=== PATIENT | female | born 1985 | race Caucasian/White ===

== ENCOUNTER 2024-02-18 10:28 | Outpatient (AMB) | payer OTHER, SELFPAY ==
--- NOTE | 2024-02-18 11:11 | MHC.PC.OV ---
Intake Visit Reasons: NPV Allergies No Known Allergies Allergy (Verified 02/18/24 10:11) Tobacco use date assessed: 02/18/24 Dental Screening Dental Screen Date: 02/18/24 HPI NPV HPI Details Pt is a 38 y/o female who presents to follow up/[facility] [place] [facility] Psych: She is on sertraline 50 mg. She saw her psychiatrist 02/08 and states she is starting to feel a lot better. She is feeling more motivated. Her OCD thoughts are under better control. She is on lorazepam prn. Neuro: She is on topamax 50 mg at bedtime which has helped prevent migraines. She has not had a horrible one since September. She is following with [facility] and has follow up at the end of February. Breast: Denies any masses. States that for the past year she has had intermittent nipple drainage and a let down feeling in both of her breasts, right worse than left. She is on the progesterone only pill and states that her OBGYN told her that it was likely not related. No family history of breast cancer. She has not breastfed in 3 years. 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 1. Little interest or pleasure in doing things: not at all 2. Feeling down, depressed, or hopeless: several days 3. Trouble falling or staying asleep, or sleeping too much: not at all 4. Feeling tired or having little energy: several days 5. Poor appetite or overeating: not at all 6. Feeling bad about yourself - or that you are a failure or have let yourself or your family down: not at all 7. Trouble concentrating on things, such as reading the newspaper or watching television: not at all 8. Moving or speaking so slowly that other people could have noticed. Or the opposite - being so fidgety or restless that you have been moving around a lot more than usual: not at all 9. Thoughts that you would be better off or of hurting yourself in some way: not at all Total score: 2 Depression Screening Interpretation: Negative Depression Screening Done: Yes [id number] - PHQ-9 Billing: Yes Source: Developed by Drs. Dc Flood, Lori Mendez, Atilio Fabian and colleagues, with an educational michelle from [employer]. Thrive Questionnaire Date Thrive assessed: 02/18/24 AUDIT C Alcohol Use Questionnaire (AUDIT-C) 1. How often do you have a drink containing alcohol?: 2-4 times a month 2. How many drinks containing alcohol do you have on a typical day when you are drinking?: 1 or 2 3. How often do you have six or more drinks on one occasion?: Never Total Score: 2 Score Reviewed/Action Taken: Yes KEARA-7 AMB Questionnaire KEARA-7 Date KEARA - 7 assessed: 02/18/24 Feeling nervous, anxious, or on edge: 3 = Nearly every day Not being able to stop or control worryin = More than half the days Worrying too much about different things: 2 = More than half the days Trouble relaxin = Nearly every day Being so restless that it is hard to sit still: 1 = Several days Becoming easily annoyed or irritable: 1 = Several days Feeling afraid as if something awful might happen: 1 = Several days Total KEARA-7 score (0-4 normal; 5-9 mild; 10-14 moderate; 15-21 severe): 13 Source: Developed by Drs. Dc Flood, Lori Mendez, Atilio Fabian and colleagues, with an educational michelle from [employer]. KEARA-7 Assessment Billing KEARA-7 Assessment Tool: KEARA-7 Assessment 88377 Physical exam (Primary Care) Tobacco/Smoking Status: Tobacco use Status Tobacco use date assessed 02/18/24 02/18/24 11:20 Patient Tobacco Use Status Former Tobacco user 02/18/24 11:20 e-Cigarette/Vaping Use Never Used 02/18/24 11:20 PHQ-9: PHQ-9 Score PHQ-9: Total score 2 02/18/24 11:20 Depression Screening Interpretation: Negative Thrive Assessment: Date of Thrive Assessment Date Thrive assessed 02/18/24 02/18/24 11:20 Telehealth Telehealth Telehealth Platform: Telephone Location of provider rendering services: practice address Location of patient: address on file Patient Identification confirmed using: Name, : Yes Telehealth method: voice only Patient verbally consented to treatment: Yes Patient verbally consented to billing insurance company: Yes Patient informed of any privacy concerns related to visit: Yes Minutes spent on Phone/Video with Pt.: 19 Assessment and Plan Assessment & Plan (1) Migraine: Code(s): G43.909 - Migraine, unspecified, not intractable, without status migrainosus Qualifiers: Intractability: not intractable Migraine type: chronic migraine (15 or more days per month) with aura Status migrainosus presence: without status migrainosus Qualified Code(s): G43.E09 - Chronic migraine with aura, not intractable, without status migrainosus Plan: currently doing better with her current treatment plan from [facility] neuro. (2) Generalized anxiety disorder with panic attacks: Code(s): F41.1 - Generalized anxiety disorder; F41.0 - Panic disorder [episodic paroxysmal anxiety] Plan: feeling a lot better with her anxiety. No SI/HI. (3) Nipple discharge: Code(s): N64.52 - Nipple discharge Plan: Mammogram ordered. Labs ordered. Orders: Orders Prolactin Today N64.52 - Nipple discharge Comprehensive Met. Panel Today F41.0 - Panic disorder [episodic paroxysmal anxiety], F41.1 - Generalized anxiety disorder, G43.E09 - Chronic migraine with aura, not intractable, without status migrainosus, N64.52 - Nipple discharge TSH reflex Free T4 Today F41.0 - Panic disorder [episodic paroxysmal anxiety], F41.1 - Generalized anxiety disorder, G43.E09 - Chronic migraine with aura, not intractable, without status migrainosus, N64.52 - Nipple discharge MM diagnostic mammo BI Today N64.52 - Nipple discharge Coding Level of Care Code Tele Est Pt Level 3 (89039) Diagnoses Chronic migraine with aura without status migrainosus, not intractable G43.E09 Intractability: not intractable Migraine type: chronic migraine (15 or more days per month) with aura Status migrainosus presence: without status migrainosus Generalized anxiety disorder with panic attacks F41.1; F41.0 Nipple discharge N64.52 Additional Codes KEARA-7 Assessment Billing - KEARA-7 Assessment Tool: KEARA-7 Assessment 63184 ([id number])
== END 2024-02-18 11:28 | disposition home or self-care (01) ==
LOC: HO.HMGFM 10:28
PROVIDERS: PCP Physician Assistant; Visit Provider Physician Assistant
DX: G43.E09 Chronic migraine with aura, not intractable, without status migrainosus (principal); F41.1 Generalized anxiety disorder; F41.0 Panic disorder [episodic paroxysmal anxiety]; N64.52 Nipple discharge
CPT/HCPCS: 99213

== ENCOUNTER 2024-04-20 14:28 | Outpatient (REF) | payer OTHER, SELFPAY ==
--- NOTE | ~2024-04-20 | MM_ITS ---
EXAMINATION: MM DIAGNOSTIC DIGITAL BREAST TOMOSYNTHESIS, BILATERAL US BREAST LIMITED, BILATERAL MAMMOGRAPHY: CLINICAL INFORMATION: 38-year-old female, baseline exam, no family history of breast CA, complaining of fullness bilateral breasts 10:00 to approximately 2:00, at the end of her cycle, and milky bilateral nipple discharge (which could not be elicited on today's exam, and the patient says has not occurred for 3 months). COMPARISON: Mammography: None. Baseline exam. TECHNIQUE: Digital breast tomosynthesis is performed in both the craniocaudal and mediolateral oblique views along with computer-aided detection (CAD). Synthesized 2D images are generated from the tomosynthesis. In addition to standard views, full-field right and left 3-D ML views were obtained, as well as 3-D spot compression right CC and MLO views. This was followed by targeted bilateral breast ultrasound. FINDINGS: The breasts are heterogeneously dense, which may obscure small masses (ACR BI-RADS breast composition Category c). -In the RIGHT breast upper outer quadrant, focal asymmetries did not persist on spot compression views and are consistent with normal overlapping fibroglandular tissues. -In the approximate 3:00 axis, middle one third, there is a 7 mm oval mass minimally lobulated margins, for which targeted right ultrasound is recommended. -Otherwise, there is no suspicious mass, no suspicious grouped calcifications, or area of architectural distortion present. There is no skin or axillary abnormality. -No right mammographic abnormality in the 10:00 to 2:00 axis to explain breast fullness. -In the LEFT breast, there is a dermal-based small circumscribed mass measuring 6 mm in diameter at the 2:00 axis, approximately 5 cm from the nipple. This has characteristics suggestive of a sebaceous cyst. We will evaluate this with ultrasound. -Otherwise, there is no suspicious mass, no suspicious grouped calcifications, or area of architectural distortion present. There is no skin or axillary abnormality. -No left mammographic abnormality in the 10:00 to 2:00 axis to explain breast fullness. ULTRASOUND: CLINICAL INFORMATION: -Bilateral breast fullness spanning 10-2 o'clock axes both breasts. -Left breast 6 mm circumscribed dermal mass 2:00 axis, 5 cm from the nipple, suggestive of sebaceous cyst. -Right breast 7 mm minimally lobular oval mass 3:00 axis, middle one third. COMPARISON: None. Baseline study. TECHNIQUE: Targeted sonographic evaluation bilateral breasts was performed using a high frequency linear transducer. Both breasts were evaluated from the 10:00 to 2:00 axes, and the regions of breast fullness. Right breast was also evaluated 3:00 axis in the region of the oval lobular 7 mm mass. Left breast was also evaluated in the 2:00 axis in the region of dermal-based 6 mm mass Selected archived documentation. FINDINGS: RIGHT BREAST: There is heterogeneously dense fibroglandular tissue present in the 10:00 to the 2:00 axis. No sonographic abnormality is present in this region to explain breast fullness. -No suspicious mass is seen. There is no pathologic acoustic shadowing. -There is a complicated cyst in the right breast 3:00 axis, 4 cm from the nipple, measuring 6 x 6 x 7 mm, with low-level internal echoes, no internal color Doppler flow, and mildly lobular margins. There is minimal through transmission present. No surrounding parenchymal changes or distortion. This finding is probably benign and six-month interval follow-up targeted right breast ultrasound recommended to ensure stability. LEFT BREAST: There is heterogeneously dense fibroglandular tissue present in the 10:00 to the 2:00 axis. No sonographic abnormality is present in this region to explain breast fullness. -No suspicious mass is seen. There is no pathologic acoustic shadowing. -There is a 6 mm dermal-based cysts in the 2:00 axis, 5 cm from the nipple, consistent with a noncomplicated sebaceous cyst. This is benign. MM/MM tomosynthesis diagnostic BI IMPRESSION: 1. There are no findings in either breast suspicious for malignancy. 2. There are no findings in either breast spanning the 10:00 to 2:00 axes to explain breast fullness. Only heterogeneously dense fibroglandular tissue is noted. Recommend clinical management for these symptoms. Otherwise, routine to routine screening is recommended. 3. There is a benign sebaceous cyst measuring 6 mm in the 2:00 axis of the LEFT breast, 5 cm from the nipple, abutting the skin, benign. Clinical management recommended. Otherwise, return to routine screening recommended. 4. There is a complicated cyst in the RIGHT breast at the 3:00 axis, 4 cm from the nipple, which is probably benign, and 6 month follow-up targeted right breast ultrasound recommended to ensure stability. OVERALL ASSESSMENT: Mammography: BI-RADS 3 - Probably benign finding(s) - 6 month follow-up suggested Ultrasound: BI-RADS 3 - Probably benign finding(s) - 6 month follow-up suggested RECOMMENDATION: 6 Month F/U
== END 2024-04-20 14:29 | disposition home or self-care (01) ==
LOC: HO.MAMMO 14:28
PROVIDERS: PCP Physician Assistant; Visit Provider Physician Assistant
DX: N64.52 Nipple discharge (principal)
CPT/HCPCS: 76642; 77062; 77066

== ENCOUNTER → 2024-04-20 15:00 | Outpatient (BNV) | payer OTHER, SELFPAY | PROVIDERS: PCP Physician Assistant; Visit Provider Radiology Diagnostic Radiology | DX: N64.52 Nipple discharge (principal) | CPT/HCPCS: 76642; 77062; 77066 ==

== ENCOUNTER 2024-05-18 09:18 | Outpatient (AMB) | payer OTHER, SELFPAY ==
--- NOTE | 2024-05-18 09:21 | A.OFFPC_ITS ---
Vital Signs 05/18/24 09:24 Height 5 ft 5.5 in Weight 170 lb 2 oz BMI 27.9 BP 110/76 Blood Pressure Location Rt brachial Position Sitting Pulse 79 Pulse Source Pulse Oximeter Pulse Oximetry (%) 99 Oxygen Delivery Method Room Air Intake Visit Reasons: Bump on right forearm Intake Note: Bump on right forearm Vegetable Trimmer Required: No Allergies No Known Allergies Allergy (Verified 05/18/24 09:23) Medication List - Last Reconciled 05/18/24 by Makenzie Byrne PA-C cetirizine (Zyrtec) 10 mg PO DAILY PRN eletriptan mg PO fluticasone propionate 50 mcg/actuation 1 spray intranasal BID lorazepam mg PO magnesium oxide 400 mg PO DAILY sertraline 50 mg PO DAILY topiramate (Topamax) 50 mg PO BEDTIME Tobacco use date assessed: 02/18/24 Dental Screening Dental Screen Date: 02/18/24 HPI Bump on right forearm HPI Details Patient is a 38-year-old female with a significant past medical history of anxiety, depression and migraines presenting today with complaints of joint pains and a cyst on her arm. She endorses a cyst on the right forearm that is half a pea-sized and has been there for few couple of months. She did have this evaluated by the breast surgeon who told her that she just has cysts. She has not want me to do anything with this today but just wants it noted. She does complain today of ongoing fatigue and just feeling out of it. She states that this has been going on for years since she gave to her twins almost 4 years ago. She states it is hard to determine what is normal fatigue and what could be something more. She finally feels like her anxiety and depression under better control with the help of a therapist and Zoloft. Her in her are doing better since the affair with marriage counseling. She overall feels like her life is under better control but she just we will sometimes wake up and feel tired by mid day. She states that she usually gets great sleep but often times is woken up in the middle of the night by her children or the dog. She does also work part-time and has later hours. She states that she wonders if her hormones are off and she has an appointment with functional medicine next month. She does complain today of joint pains, stiffness and aching. 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 She states that her joints constantly crack and feels stiff. She has not noticed any swelling but a couple times she has had some swelling of the left knee but not since she injured it. Her left knee is her most painful joint and it has been painful for years since she had injury. No recent swelling or erythema. No weakness or instability. Her right knee is painful, both elbows and wrists are also painful. She often has to wear braces. No numbness, tingling or weakness. She states that she does still carry her children sometimes and that causes some pain. No family history of any autoimmune disease is but she wants to make sure that she does not have rheumatoid arthritis or arthritis in general. [facility] [place] Medical History (Updated 05/18/24 @ 11:14 by Makenzie Byrne PA-C) Generalized anxiety disorder with panic attacks Hernia Migraine Anxiety Surgical History (Updated 02/18/24 @ 10:40 by Luma Newell CMA) H/O section H/O wisdom tooth extraction Family History (Updated 02/18/24 @ 10:41 by Luma Newell CMA) Paternal Grandfather Alcoholism Other Substance use Social History Housing: House Patient Tobacco Use Status: Former Tobacco user Years Smoked: highschool years e-Cigarette/Vaping Use: Never Used Second Hand Smoke Exposure: No service: Yes Current occupation: train station server/ baretender Current occupational exposures/hazards: No Cognitive needs: No Hearing needs: No Vision needs: No Questionnaire PHQ-9 Over the last 2 weeks, how often have you been bothered by any of the following problems? 1. Little interest or pleasure in doing things: not at all 2. Feeling down, depressed, or hopeless: not at all 3. Trouble falling or staying asleep, or sleeping too much: not at all 4. Feeling tired or having little energy: several days 5. Poor appetite or overeating: not at all 6. Feeling bad about yourself - or that you are a failure or have let yourself or your family down: not at all 7. Trouble concentrating on things, such as reading the newspaper or watching television: not at all 8. Moving or speaking so slowly that other people could have noticed. Or the opposite - being so fidgety or restless that you have been moving around a lot more than usual: not at all 9. Thoughts that you would be better off or of hurting yourself in some way: not at all Total score: 1 Depression Screening Interpretation: Negative Depression Screening Done: Yes 25572 - PHQ-9 Billing: Yes Source: Developed by Drs. Dc Flood, Lori Mendez, Atilio Fabian and colleagues, with an educational michelle from [employer]. Thrive Questionnaire Date Thrive assessed: 02/18/24 I am a: Patient What is your living situation today?: I have a steady place to live Within the past 12 months, did the food you bought not last and you didn't have the money to get more?: Never true Within the past 12 months, did you worry whether your food would run out before you got money to buy more?: Never true Do you have trouble paying for medicines?: No Do you have trouble getting transportation to medical appointments?: No Do you have trouble paying your heating and electricity bill?: No Do you have trouble taking care of your child, family member or friend?: No Do you have trouble with day-to-day activities such as bathing, preparing meals, shopping, managing finances, etc.?: No Are you currently unemployed and looking for a job?: No Are you interested in more education?: No Please select the resources that you would like help with: None Currently or been in a relationship where the following occur: No concerns reported THRIVE Score: 0 AUDIT C Alcohol Use Questionnaire (AUDIT-C) 1. How often do you have a drink containing alcohol?: 2-4 times a month 2. How many drinks containing alcohol do you have on a typical day when you are drinking?: 1 or 2 3. How often do you have six or more drinks on one occasion?: Never Total Score: 2 KEARA-7 AMB Questionnaire KEARA-7 Date KEARA - 7 assessed: 02/18/24 Feeling nervous, anxious, or on edge: 1 = Several days Not being able to stop or control worryin = Several days Worrying too much about different things: 1 = Several days Trouble relaxin = Several days Being so restless that it is hard to sit still: 0 = Not at all Becoming easily annoyed or irritable: 0 = Not at all Feeling afraid as if something awful might happen: 0 = Not at all Total KEARA-7 score (0-4 normal; 5-9 mild; 10-14 moderate; 15-21 severe): 4 Source: Developed by Drs. Dc Flood, Lori Mendez, Atilio Fabian and colleagues, with an educational michelle from [employer]. KEARA-7 Assessment Billing KEARA-7 Assessment Tool: KEARA-7 Assessment 18805 Physical exam (Primary Care) Vital Signs: Last Vital Signs Pulse 79 05/18/24 09:24 BP 110/76 05/18/24 09:24 Pulse Ox 99 05/18/24 09:24 Oxygen Delivery Method Room Air 05/18/24 09:24 BMI result Body Mass Index 27.9 Tobacco/Smoking Status: Tobacco use Status Tobacco use date assessed 02/18/24 05/18/24 09:22 Patient Tobacco Use Status Former Tobacco user 05/18/24 09:22 e-Cigarette/Vaping Use Never Used 05/18/24 09:22 PHQ-9: PHQ-9 Score PHQ-9: Total score 1 05/18/24 09:41 Depression Screening Interpretation: Negative Thrive Assessment: Date of Thrive Assessment Date Thrive assessed 02/18/24 05/18/24 09:22 Currently or been in a relationship where the following occur: No concerns reported Const Orientation/consciousness: patient oriented x3 HENMT Ears: hearing grossly normal bilaterally Neck Thyroid: Thyroid normal Lymphatic: no lymphadenopathy noted Resp Auscultation: clear to auscultation bilaterally Cardio Rate: regular rate Rhythm: regular rhythm Heart sounds: S1 normal heart sound present and S2 normal heart sound present GI Inspection: Yes normal to inspection Palpation (GI): Soft to palpation and Other GI palpation findings present (nontender, no cva tenderness) Auscultation: normoactive bowel sounds Rectal Exam - Female: deferred Back/Spine/Pelvis Cervical Spine: cervical ROM normal Thoracic/Lumbar Spine: thoraco-lumbar ROM normal Skin Other: There is a small, half a pea-sized subcutaneous, slightly mobile lump noted on the right anterior forearm. General skin exam: no rashes or lesions noted Neuro General: patient oriented x3, gait normal and no focal motor deficits Extrem General: Yes normal to inspection and Yes full ROM Right upper extremity: full ROM, normal capillary refill and no joint enlargement Left upper extremity: full ROM, normal capillary refill and no joint enlargement Right lower extremity: normal to inspection, full ROM, normal capillary refill and no joint enlargement Left lower extremity: normal to inspection, full ROM, normal capillary refill and no joint enlargement Assessment and Plan Assessment & Plan (1) Polyarthralgia: Code(s): M25.50 - Pain in unspecified joint Plan: Labs ordered today. We will follow up pending test results. (2) Bilateral knee pain: Code(s): M25.561 - Pain in right knee; M25.562 - Pain in left knee Qualifiers: Chronicity: chronic Qualified Code(s): M25.561 - Pain in right knee; M25.562 - Pain in left knee; G89.29 - Other chronic pain Plan: X-rays ordered. We will follow up pending test results (3) Bilateral elbow joint pain: Code(s): M25.521 - Pain in right elbow; M25.522 - Pain in left elbow Plan: As above (4) Bilateral wrist pain: Code(s): M25.531 - Pain in right wrist; M25.532 - Pain in left wrist Plan: As above (5) Fatigue: Code(s): R53.83 - Other fatigue Qualifiers: Fatigue type: unspecified Qualified Code(s): R53.83 - Other fatigue Plan: Labs ordered. We will follow up. Patient understands and agrees with the plan. Orders: Orders Complete Blood Count Auto Diff Today M25.50 - Pain in unspecified joint, M25.521 - Pain in right elbow, M25.522 - Pain in left elbow, M25.531 - Pain in right wrist, M25.532 - Pain in left wrist, M25.561 - Pain in right knee, M25.562 - Pain in left knee, R53.83 - Other fatigue Ferritin Today M25.50 - Pain in unspecified joint, M25.521 - Pain in right elbow, M25.522 - Pain in left elbow, M25.531 - Pain in right wrist, M25.532 - Pain in left wrist, M25.561 - Pain in right knee, M25.562 - Pain in left knee, R53.83 - Other fatigue IRON PROFILE Today M25.50 - Pain in unspecified joint, M25.521 - Pain in right elbow, M25.522 - Pain in left elbow, M25.531 - Pain in right wrist, M25.532 - Pain in left wrist, M25.561 - Pain in right knee, M25.562 - Pain in left knee, R53.83 - Other fatigue ADALBERTO Reflex Titer and Pattern Today M25.50 - Pain in unspecified joint, M25.521 - Pain in right elbow, M25.522 - Pain in left elbow, M25.531 - Pain in right wrist, M25.532 - Pain in left wrist, M25.561 - Pain in right knee, M25.562 - Pain in left knee, R53.83 - Other fatigue Uric Acid Today M25.50 - Pain in unspecified joint, M25.521 - Pain in right elbow, M25.522 - Pain in left elbow, M25.531 - Pain in right wrist, M25.532 - Pain in left wrist, M25.561 - Pain in right knee, M25.562 - Pain in left knee, R53.83 - Other fatigue Rheumatoid Factor Today M25.50 - Pain in unspecified joint, M25.521 - Pain in right elbow, M25.522 - Pain in left elbow, M25.531 - Pain in right wrist, M25.532 - Pain in left wrist, M25.561 - Pain in right knee, M25.562 - Pain in left knee, R53.83 - Other fatigue XR elbow LT min 3V Today M25.531 - Pain in right wrist, M25.532 - Pain in left wrist XR elbow RT min 3V Today M25.531 - Pain in right wrist, M25.532 - Pain in left wrist XR knee RT 3V Today M25.561 - Pain in right knee, M25.562 - Pain in left knee XR knee LT 3V Today M25.562 - Pain in left knee XR wrist LT min 3V Today M25.531 - Pain in right wrist, M25.532 - Pain in left wrist Vitamin B12 and Folate Today M25.50 - Pain in unspecified joint, M25.521 - Pain in right elbow, M25.522 - Pain in left elbow, M25.531 - Pain in right wrist, M25.532 - Pain in left wrist, M25.561 - Pain in right knee, M25.562 - Pain in left knee, R53.83 - Other fatigue Vitamin D 1,25 dihydroxy Today M25.50 - Pain in unspecified joint, M25.521 - Pain in right elbow, M25.522 - Pain in left elbow, M25.531 - Pain in right wrist, M25.532 - Pain in left wrist, M25.561 - Pain in right knee, M25.562 - Pain in left knee, R53.83 - Other fatigue C Reactive Protein Today M25.50 - Pain in unspecified joint, M25.521 - Pain in right elbow, M25.522 - Pain in left elbow, M25.531 - Pain in right wrist, M25.532 - Pain in left wrist, M25.561 - Pain in right knee, M25.562 - Pain in left knee, R53.83 - Other fatigue Erythrocyte Sedimentation Rate Today M25.50 - Pain in unspecified joint, M25.521 - Pain in right elbow, M25.522 - Pain in left elbow, M25.531 - Pain in right wrist, M25.532 - Pain in left wrist, M25.561 - Pain in right knee, M25.562 - Pain in left knee, R53.83 - Other fatigue Lyme IgG/IgM w/reflex to WB Today M25.50 - Pain in unspecified joint, M25.521 - Pain in right elbow, M25.522 - Pain in left elbow, M25.531 - Pain in right wrist, M25.532 - Pain in left wrist, M25.561 - Pain in right knee, M25.562 - Pain in left knee, R53.83 - Other fatigue XR wrist RT min 3V Today M25.531 - Pain in right wrist, M25.532 - Pain in left wrist Medications: New elyfdezbpu-omglzjplblxoz-krpq 50-325-40 mg 1 tab PO Q6H 30 days PRN 30 tabs 0RF pain Changed From lorazepam PO To lorazepam 0.5 mg PO Q8H 30 days PRN 60 tabs 0RF anxiety Coding Level of Care Code Est Pt Level 4 (13286) Complex EM visit Add On G2211 Diagnoses Polyarthralgia M25.50 Chronic pain of both knees M25.561; M25.562; G89.29 Chronicity: chronic Bilateral elbow joint pain M25.521; M25.522 Bilateral wrist pain M25.531; M25.532 Fatigue, unspecified type R53.83 Fatigue type: unspecified Additional Codes KEARA-7 Assessment Billing - KEARA-7 Assessment Tool: KEARA-7 Assessment 42790 ([id number])
[2024-05-18 09:24] VITALS: BP 110/76; PULSE 79; O2SAT 99; BMI 27.9
== END 2024-05-18 10:08 | disposition home or self-care (01) ==
PROVIDERS: PCP Physician Assistant; Visit Provider Physician Assistant
DX: G89.29 Other chronic pain (principal); M25.561 Pain in right knee; M25.562 Pain in left knee; M25.521 Pain in right elbow; M25.522 Pain in left elbow; M25.531 Pain in right wrist; M25.532 Pain in left wrist; R53.83 Other fatigue
CPT/HCPCS: 99214

== ENCOUNTER 2024-05-18 10:21 | Outpatient (REF) | payer OTHER, SELFPAY ==
[2024-05-18 14:22] LABS: MANUAL DIFF FLAG NO
[2024-05-18 14:23] LABS: Basophils Absolute Auto 0.1 X10*3/uL (0.0-0.2); Basophils Percent Auto 1.1 % (0-2); Eosinophils Absolute Auto 0.1 X10*3/uL (0.0-0.4); Eosinophils Percent Auto 1.9 % (0-4); Hematocrit 43.8 % (37.0-47.0); Hemoglobin 14.8 g/dl (12.0-16.0); Imm Gran Abs Auto 0.01 X10*3/uL (0.00-0.03); Imm Gran Pct Auto 0.2 % (0.0-0.4); Lymphocytes Absolute Auto 1.5 X10*3/uL (1.2-4.9); Lymphocytes Percent Auto 31.9 % (20-40); Mean Corpuscular HGB Conc 33.8 g/dl (31.0-35.0); Mean Corpuscular Hemoglobin 28.6 pg (27.0-33.0); Mean Corpuscular Volume 84.7 fL (80.0-98.0); Mean Platelet Volume 10.7 fL (9.4-12.3); Monocytes Absolute Auto 0.2 X10*3/uL (0.1-1.2); Neutrophils Absolute Auto 2.8 x10*3/uL (2.0-8.3); Neutrophils Percent Auto 59.9 % (45-73); Platelet Count 224 X10*3/uL (160-400); Red Blood Count 5.17 X10*6/uL (4.20-5.50); Red Cell Distribution Width 13.9 % (11.0-16.0); White Blood Count 4.6 X10*3/uL (4.8-10.8)
[2024-05-18 15:10] LABS: Erythrocyte Sedimentation Rate 2 MM/HR (0-20)
[2024-05-18 15:13] LABS: Rheumatoid Factor < 13.0 IU/mL (<15.0)
[2024-05-18 15:17] LABS: Alanine Aminotransferase 7 U/L (0-31); Albumin Level 4.4 g/dL (3.5-5.0); Alkaline Phosphatase 51 U/L (39-117); Anion Gap 9 (12-20); Aspartate Amino Transferase 10 U/L (5-31); Bilirubin Total 0.6 mg/dL (0.0-1.0); Blood Urea Nitrogen 16 mg/dL (9-16); C Reactive Protein < 0.10 mg/dL (< or = 0.50); Calcium 9.5 mg/dL (8.4-10.2); Carbon Dioxide 24 mmol/L (22-29); Chloride 110 mmol/L (96-108); Estimated Glomerular Filt Rate > 60; Glucose Random 88 mg/dL (60-115); Iron 108 mcg/dL (30-160); Percent Iron Saturation 39 % (15-50); Potassium 4.1 mmol/L (3.3-5.1); Sodium 139 mmol/L (135-145); Total Iron Binding Capacity 275 mcg/dL (228-428); Total Protein 6.9 g/dL (6.5-8.0); Unsaturated Iron Binding 167 ug/dL; Uric Acid 2.9 mg/dL (2.4-5.7)
[2024-05-18 15:22] LABS: Ferritin 45 ng/mL (10-122)
[2024-05-18 15:30] LABS: Folate 5.4 ng/mL (> or = 4.0); Vitamin B12 427 pg/mL (200-900)
[2024-05-19 17:33] LABS: Prolactin 6.2 ng/mL
[2024-05-19 18:18] LABS: Lyme Abs Screen <0.90 index
[2024-05-22 13:47] LABS: Anti Nuclear Antibody Screen POSITIVE (NEGATIVE); Anti Nuclear Antibody Titer 1:40 titer
[2024-05-22 15:28] LABS: VITAMIN D (1,25 OH) D3 40 pg/mL; Vit D (1,25-Dihydroxy) Total 40 pg/mL (18-72); Vitamin D (1,25 OH) D2 <8 pg/mL
== END 2024-05-18 10:22 | disposition home or self-care (01) ==
LOC: HO.WFDLDS 10:21
PROVIDERS: Visit Provider Physician Assistant
DX: M25.50 Pain in unspecified joint (principal); N64.52 Nipple discharge; G43.E09 Chronic migraine with aura, not intractable, without status migrainosus; F41.1 Generalized anxiety disorder; F41.0 Panic disorder [episodic paroxysmal anxiety]; M25.561 Pain in right knee; M25.562 Pain in left knee; M25.521 Pain in right elbow; M25.522 Pain in left elbow; M25.531 Pain in right wrist; M25.532 Pain in left wrist; R53.83 Other fatigue
CPT/HCPCS: 36415; 80053; 82607; 82652; 82728; 82746; 83540; 84146; 84443; 84550; 85025; 85652; 86038; 86039; 86140; 86431; 86617; 86618

== ENCOUNTER 2025-06-08 10:58 | Outpatient (AMB) | payer OTHER, SELFPAY ==
--- NOTE | 2025-06-08 11:04 | MHC.PC.OV ---
Vital Signs 06/08/25 11:09 Height 5 ft 5.5 in Weight 186 lb 6 oz BMI 30.5 BP 100/72 Blood Pressure Location Rt brachial Position Sitting Respiration 14 Pulse 74 Pulse Source Pulse Oximeter Temp 98.1 F Temp Source Oral Pulse Oximetry (%) 99 Oxygen Delivery Method Room Air Intake Visit Reasons: Left side pain Intake Note: Left sided pain near left side of belly button. 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 She states that for the last few years she has noted pain around the umbilical area. In childhood she did have umbilical hernia repair. She states since then she has had 2 pregnancies in 1 with twins. She states that this last year the pain has become a little bit worse. It is worse with certain exercises, lifting or twisting. It is in the same area and sometimes she can feel like she has to push something back in. She says it is not an obvious hernia but almost feels like what she would expect to hernia to feel like. There was no associated nausea, vomiting, diarrhea, urinary symptoms. No pain with eating.. Sometimes get abdominal bloating but does not feel like this is related. She is also considering going for a tummy tuck this year. mammo:UTD, done yesterday at [facility]. due in 6 months [facility] Medical History (Updated 06/08/25 @ 11:34 by Makenzie Byrne PA-C) Generalized anxiety disorder with panic attacks Hernia Migraine Anxiety Surgical History H/O section H/O wisdom tooth extraction Family History Paternal Grandfather Alcoholism Other Substance use Social History (Updated 06/08/25 @ 11:14 by Luma Newell CMA) Housing: House Alcohol intake: current Patient Tobacco Use Status: Former Tobacco user Years Smoked: highschool years e-Cigarette/Vaping Use: Never Used Second Hand Smoke Exposure: No Use of substances other than those prescribed or required for medical reasons: No service: Yes Current occupation: ware server/ baretender Current occupational exposures/hazards: No Cognitive needs: No Hearing needs: No Vision needs: No Questionnaire PHQ-9 Over the last 2 weeks, how often have you been bothered by any of the following problems? 1. Little interest or pleasure in doing things: not at all 2. Feeling down, depressed, or hopeless: not at all 3. Trouble falling or staying asleep, or sleeping too much: not at all 4. Feeling tired or having little energy: not at all 5. Poor appetite or overeating: not at all 6. Feeling bad about yourself - or that you are a failure or have let yourself or your family down: not at all 7. Trouble concentrating on things, such as reading the newspaper or watching television: not at all 8. Moving or speaking so slowly that other people could have noticed. Or the opposite - being so fidgety or restless that you have been moving around a lot more than usual: not at all 9. Thoughts that you would be better off or of hurting yourself in some way: not at all Total score: 0 Source: Developed by Drs. Dc Flood, Lori Mendez, Atilio Fabian and colleagues, with an educational michelle from [employer]. Thrive Questionnaire Date Thrive assessed: 06/01/25 I am a: Patient What is your living situation today?: I have a steady place to live Within the past 12 months, did the food you bought not last and you didn't have the money to get more?: Never true Within the past 12 months, did you worry whether your food would run out before you got money to buy more?: Never true Do you have trouble paying for medicines?: No Do you have trouble getting transportation to medical appointments?: No Do you have trouble paying your heating and electricity bill?: No Do you have trouble taking care of your child, family member or friend?: No Do you have trouble with day-to-day activities such as bathing, preparing meals, shopping, managing finances, etc.?: No Are you currently unemployed and looking for a job?: No Are you interested in more education?: No Please select the resources that you would like help with: None Currently or been in a relationship where the following occur: No concerns reported THRIVE Score: 0 AUDIT C Alcohol Use Questionnaire (AUDIT-C) 2. How many drinks containing alcohol do you have on a typical day when you are drinking?: 1 or 2 Total Score: 0 KEARA-7 AMB Questionnaire KEARA-7 Date KEARA - 7 assessed: 02/18/24 Feeling nervous, anxious, or on edge: 0 = Not at all Not being able to stop or control worryin = Not at all Worrying too much about different things: 0 = Not at all Trouble relaxin = Not at all Being so restless that it is hard to sit still: 0 = Not at all Becoming easily annoyed or irritable: 0 = Not at all Feeling afraid as if something awful might happen: 0 = Not at all Total KEARA-7 score (0-4 normal; 5-9 mild; 10-14 moderate; 15-21 severe): 0 Source: Developed by Drs. Dc Flood, Lori Mendez, Atilio Fabian and colleagues, with an educational michelle from [employer]. Physical exam (Primary Care) Vital Signs: Last Vital Signs Temp 98.1 F 06/08/25 11:09 Pulse 74 06/08/25 11:09 Resp 14 06/08/25 11:09 BP 100/72 06/08/25 11:09 Pulse Ox 99 06/08/25 11:09 Oxygen Delivery Method Room Air 06/08/25 11:09 BMI result Body Mass Index 30.5 Tobacco/Smoking Status: Tobacco use Status Tobacco use date assessed 06/08/25 06/08/25 11:14 Patient Tobacco Use Status Former Tobacco user 06/08/25 11:14 e-Cigarette/Vaping Use Never Used 06/08/25 11:14 PHQ-9: PHQ-9 Score PHQ-9: Total score 0 06/08/25 11:06 Thrive Assessment: Date of Thrive Assessment Date Thrive assessed 06/01/25 06/08/25 11:06 Currently or been in a relationship where the following occur: No concerns reported Const Orientation/consciousness: patient oriented x3 HENMT Ears: hearing grossly normal bilaterally Neck Thyroid: Thyroid normal Lymphatic: no lymphadenopathy noted Resp Auscultation: clear to auscultation bilaterally Cardio Rate: regular rate Rhythm: regular rhythm Heart sounds: S1 normal heart sound present and S2 normal heart sound present GI Other: There is mild left periumbilical discomfort with deep palpation. With coughing, I do believe I am able to palpate a small weakness in this area. Inspection: Yes normal to inspection Palpation (GI): Soft to palpation Auscultation: normoactive bowel sounds Rectal Exam - Female: deferred Skin General skin exam: no rashes or lesions noted Neuro General: patient oriented x3, gait normal and no focal motor deficits Coding Level of Care Code Est Pt Level 4 (25896) Complex EM visit Add On G2211 Diagnoses Diastasis of rectus abdominis M62.08 Periumbilic abdominal tenderness R10.815 Abdominal bloating R14.0 Assessment & Plan Assessment & Plan (1) Diastasis of rectus abdominis: Code(s): M62.08 - Separation of muscle (nontraumatic), other site Category: Medical Plan: Referral to Plastic surgery as she is also considering a tummy tuck. (2) Periumbilic abdominal tenderness: Code(s): R10.815 - Periumbilic abdominal tenderness Category: Medical Plan: Abdominal ultrasound ordered. Discussed possible hernia. We will follow up pending test results. If she goes through with her plastic surgery consult she will let me know if they also address this or if she would like to be seen by a general surgeon. (3) Abdominal bloating: Code(s): R14.0 - Abdominal distension (gaseous) Category: Medical Plan: As above. Labs and imaging ordered. Orders: Orders Comprehensive Met. Panel Today M62.08 - Separation of muscle (nontraumatic), other site, R10.815 - Periumbilic abdominal tenderness, R14.0 - Abdominal distension (gaseous) Vitamin B12 and Folate Today M62.08 - Separation of muscle (nontraumatic), other site, R10.815 - Periumbilic abdominal tenderness, R14.0 - Abdominal distension (gaseous) Hemoglobin A1c Today M62.08 - Separation of muscle (nontraumatic), other site, R10.815 - Periumbilic abdominal tenderness, R14.0 - Abdominal distension (gaseous), R73.01 - Impaired fasting glucose US abdomen complete Today M62.08 - Separation of muscle (nontraumatic), other site, R10.815 - Periumbilic abdominal tenderness, R14.0 - Abdominal distension (gaseous) US pelvic and transvaginal Today M6.08 - Separation of muscle (nontraumatic), other site, R10.815 - Periumbilic abdominal tenderness, R14.0 - Abdominal distension (gaseous) Complete Blood Count Auto Diff Today M62.08 - Separation of muscle (nontraumatic), other site, R10.815 - Periumbilic abdominal tenderness, R14.0 - Abdominal distension (gaseous) Lipid Panel Today M6.08 - Separation of muscle (nontraumatic), other site, R10.815 - Periumbilic abdominal tenderness, R14.0 - Abdominal distension (gaseous) TSH reflex Free T4 Today M62.08 - Separation of muscle (nontraumatic), other site, R10.815 - Periumbilic abdominal tenderness, R14.0 - Abdominal distension (gaseous) UA CC w/rflx Micro + Cult Today M6.08 - Separation of muscle (nontraumatic), other site, R10.815 - Periumbilic abdominal tenderness, R14.0 - Abdominal distension (gaseous), R30.0 - Dysuria Microalbumin, Random (w Creat) Today .08 - Separation of muscle (nontraumatic), other site, R10.815 - Periumbilic abdominal tenderness, R14.0 - Abdominal distension (gaseous) Referrals Plastic Surgery Referral .08 - Separation of muscle (nontraumatic), other site
[2025-06-08 11:09] VITALS: BP 100/72; PULSE 74; RESP 14; TEMP 36.7; O2SAT 99; BMI 30.5
== END 2025-06-08 12:01 | disposition home or self-care (01) ==
LOC: HO.HMCFM 10:59
PROVIDERS: PCP Physician Assistant; Visit Provider Physician Assistant
DX: M62.08 Separation of muscle (nontraumatic), other site (principal); R10.815 Periumbilic abdominal tenderness; R14.0 Abdominal distension (gaseous)

== ENCOUNTER 2025-07-21 13:30 | Outpatient (REF) | payer OTHER, SELFPAY ==
[2025-07-21 18:20] LABS: MANUAL DIFF FLAG NO
[2025-07-21 18:23] LABS: Appearance Urine Clear; Glucose Urine UA Negative (Negative); PH 7.5 (5.0-9.0); Specific Gravity - Urine 1.010 (1.005-1.025)
[2025-07-21 18:34] LABS: Hematocrit 38.6 % (37.0-47.0); Hemoglobin 12.8 g/dl (12.0-16.0); Imm Gran Abs Auto 0.02 X10*3/uL (0.00-0.03); Imm Gran Pct Auto 0.3 % (0.0-0.4); Lymphocytes Absolute Auto 1.4 X10*3/uL (1.2-4.9); Mean Corpuscular HGB Conc 33.2 g/dl (31.0-35.0); Mean Corpuscular Hemoglobin 28.4 pg (27.0-33.0); Mean Corpuscular Volume 85.6 fL (80.0-98.0); NRBC Abs Auto 0.000 X10*3/uL (0.0-0.012); NRBC Pct Auto 0.0 /100WBC (0.0-0.2); Platelet Count 232 X10*3/uL (160-400); Red Blood Count 4.51 X10*6/uL (4.20-5.50); White Blood Count 5.7 X10*3/uL (4.8-10.8)
[2025-07-21 18:46] LABS: Alanine Aminotransferase 9 U/L (0-31); Albumin Level 4.3 g/dL (3.5-5.0); Alkaline Phosphatase 69 U/L (39-117); Anion Gap 10 (12-20); Aspartate Amino Transferase 35 U/L (5-31); Blood Urea Nitrogen 14 mg/dL (9-16); Calcium 9.0 mg/dL (8.4-10.2); Carbon Dioxide 22 mmol/L (22-29); Chloride 112 mmol/L (96-108); Cholesterol 149 mg/dL (<200); Estimated Glomerular Filt Rate > 60; HDL Cholesterol 52 mg/dL (>40); Potassium 4.0 mmol/L (3.3-5.1); Sodium 140 mmol/L (135-145); Total Protein 6.7 g/dL (6.5-8.0); Triglycerides 98 mg/dL (<150); Uric Acid 2.8 mg/dL (2.4-5.7)
[2025-07-21 19:17] LABS: Folate 5.6 ng/mL (> or = 4.0); Vitamin B12 432 pg/mL (200-900)
[2025-07-22 06:28] LABS: Lyme Abs Screen <0.90 index
== END 2025-07-21 13:31 | disposition home or self-care (01) ==
LOC: HO.WFDLDS 13:30
PROVIDERS: Visit Provider Physician Assistant
DX: Z01.84 Encounter for antibody response examination (principal); Z13.29 Encounter for screening for other suspected endocrine disorder; Z13.6 Encounter for screening for cardiovascular disorders; R10.815 Periumbilic abdominal tenderness; M62.08 Separation of muscle (nontraumatic), other site; R14.0 Abdominal distension (gaseous); R73.01 Impaired fasting glucose; M25.571 Pain in right ankle and joints of right foot; R30.0 Dysuria; M25.471 Effusion, right ankle
CPT/HCPCS: 36415; 80053; 80061; 81003; 82570; 82607; 82746; 83036; 84443; 84550; 85025; 85652; 86431; 86617; 86618